=== PATIENT | male | born 1995 | race Caucasian/White ===

== ENCOUNTER 2024-09-01 14:52 | Outpatient (OUT) | payer BC, SELFPAY ==
--- NOTE | 2024-09-01 15:25 | XR_ITS ---
The [address] [address] Patient Name: DEBI HESS MRN: [id number] date: 1995 Sex: M Assigned Patient Location: LAB Current Patient Location: LAB Accession/Order Number: [id number] Exam Date: 09/01/2024 16:06 Report Date: 09/01/2024 16:17 At the request of: MANJEET SANTAMARIA DO Procedure: XR sacroiliac joint KENNEDY 3 views SI joints Mild sclerotic changes of SI joints bilaterally. Adequate alignment. XR/XR sacroiliac joint KENNEDY IMPRESSION: Mild sclerosis near SI joints. May consider sacroiliitis. Impression dictated by: Gilles Benavides M.D.09/01/2024 4:17 PM Dictation Location: [place] [address] Electronically authenticated by: [id number] Y Date: 09/01/2024 16:17
--- NOTE | 2024-09-01 15:25 | XR_ITS ---
The [place] [address] Patient Name: DEBI HESS MRN: [id number] date: 1995 Sex: M Assigned Patient Location: LAB Current Patient Location: LAB Accession/Order Number: [id number] Exam Date: 09/01/2024 16:17 Report Date: 09/01/2024 16:19 At the request of: MANJEET SANTAMARIA DO Procedure: XR lumbar spine 6V w bending 6 views Lumbar Spinewith flexion extension HISTORY: Low back pain. History of uveitis COMPARISON: None POSTSURGICAL CHANGES: None BONY ALIGNMENT: Adequate HYPERMOBILITY:No bending imaging. LISTHESIS:None FRACTURE: None DEGENERATIVE CHANGES: Mild L5-S1 disc space narrowing. Mild facet degeneration. SOFT TISSUES: Unremarkable BONY MINERALIZATION:Adequate XR/XR lumbar spine 6V w bending IMPRESSION: Mild L5-S1 gas degeneration. Impression dictated by: Gilles Benavides M.D.09/01/2024 4:19 PM Dictation Location: [employer] Electronically authenticated by: [id number] Y Date: 09/01/2024 16:19
== END 2024-09-01 14:53 | disposition home or self-care (01) ==
PROVIDERS: PCP Internal Medicine; Visit Provider Internal Medicine
DX: H20.9 Unspecified iridocyclitis (principal); M54.50 Low back pain, unspecified
CPT/HCPCS: 36415; 72114; 72202; 81374